=== PATIENT | female | born 1975 | race Caucasian/White ===

== ENCOUNTER 2024-04-29 19:17 | Emergency (ER) | payer OTHER, SELFPAY ==
[2024-04-29 19:26] VITALS: BP 125/92
[2024-04-29 19:42] LABS: % Basophils 0.3 % (0-2); % Immature Granulocytes 0.2 % (0-0.5); % Lymphocytes 29.7 % (20.5-51.1); % Monocytes 7.5 % (1.7-9.3); % Neutrophils 60.3 % (42.2-75.2); Absolute Eosinophils 0.1 10^3/uL (0-0.7); Absolute Lymphocytes 1.8 10^3/uL (1.2-3.4); Absolute Monocytes 0.4 10^3/uL (0.1-0.6); Absolute Neutrophils 3.6 10^3/uL (1.4-6.5); Hematocrit 40.8 % (37.0-47.0); Hemoglobin 13.6 g/dL (12.0-16.0); Mean Corp Hgb Conc. 33.3 g/dL (33.0-37.0); Mean Corpuscular Hgb 29.9 pg (27.0-31.0); Mean Corpuscular Volume 89.7 fL (81.0-99.0); Mean Platelet Volume 10.8 fL (7.4-10.4); Nucleated Red Blood Cells % 0 %; Platelet Count 193 10^3/uL (130-400); Red Blood Cell Count 4.55 10^6/uL (4.20-5.40); Red Cell Dist. Width 11.9 % (11.5-14.5); White Blood Cell Count 5.9 10^3/uL (4.8-10.8)
[2024-04-29 19:59] LABS: HCG, Serum Qualitative Screen Negative
[2024-04-29 20:03] LABS: ALT (SGPT) 35 U/L (0-35); AST (SGOT) 27 U/L (14-36); Albumin 4.7 g/dl (3.5-5.0); Alkaline Phosphatase 101 U/L (38-126); Blood Urea Nitrogen 14 mg/dl (7-17); Carbon Dioxide 29 mmol/L (22-30); Chloride 104 mmol/L (98-107); Glucose 99 mg/dl (70-99); Lipase 186 U/L (23-300); Potassium 4.4 mmol/L (3.5-5.1); Sodium 141 mmol/L (135-145); Total Bilirubin 0.3 mg/dl (0.2-1.3); Total Protein 7.9 g/dl (6.3-8.2); eGFR > 60.00
[2024-04-29 21:31] VITALS: BMI 24.1
[2024-04-29 21:31] LABS: Urine Albumin Negative (Neg - Trace); Urine Bilirubin Negative (Negative); Urine Character Clear (Clear); Urine Color Yellow; Urine Glucose Negative (Negative); Urine Ketone Negative (Negative); Urine Leukocyte Negative (Negative); Urine Nitrite Negative (Negative); Urine Occult Blood Negative (Negative); Urine Urobilinogen Negative (Neg - 1+); Urine pH 6.5 (5.0-9.0)
--- NOTE | 2024-04-29 21:35 | ED.GENMED ---
History of Present Illness
General
Chief Complaint: Abdominal Pain
Source: patient
Exam Limitations: none
Time Seen by Provider: 04/29/24 21:14
History of Present Illness
History of Present Illness:
48yoF with no significant past medical history presenting for evaluation of abdominal pain. Symptoms have been intermittent for the past 4 to 5 weeks. She reports a pain in her epigastric region and RUQ. Pain is intermittent and seems to be worse
in the evenings. Pain seems to improve after eating if she is full. She has tried to eliminate coffee from her diet without any improvement. Her pain was constant earlier today but she is currently pain free. She is otherwise asymptomatic and
denies any fevers, chest pain, shortness of breath, pleuritic pain, nausea, vomiting, dysuria, diarrhea, constipation, weight loss. No previous abdominal surgeries.
Phy Exam
General Physical Exam
General Presentation: well appearing and no apparent distress
General age: appears stated age
General Skin: warm and dry
General Habitus: normal
General Mental: alert
ENT Exam
ENT Exam: normocephalic
Cardiovascular Exam
Cardiovascular Exam: regular rate/rhythm and no murmur
Pulmonary Exam
Pulmonary Exam: lungs clear, no respiratory distress, no rales, no crackles, no rhonchi and no wheezing
Gastrointestinal Exam
Gastrointestinal Exam: non tender, soft, non distended and no cva tenderness
Neurological Exam
Neurological Exam: alert
[place] Coma Scale
Eye Opening: Spontaneous
Verbal Response: Oriented
Motor Response: Obeys Commands
GCS Total Score: 15
Skin Exam
Skin Exam: normal color and warm/dry
Psychiatric Exam
Psychiatric Exam: normal mood/affect
Course
Orders/Labs/Results
Orders:
Orders
04/29/24 19:32
Test Result ONCE
04/29/24 19:35
Comprehensive Metabolic Panel Urgent
HCG, Serum Qualitative Screen Urgent
Lipase Urgent
04/29/24 19:36
Complete Blood Count/With Diff Urgent
04/29/24 21:25
Urinalysis Reflex To Culture Urgent
Date Specimen was Collected: 04/29/24
Time Specimen was Collected: 21:25
04/29/24 21:30
US Abdomen Complete/Upper Urgent
Comment:
Reason For Exam: Epigastric/RUQ pain
Abnormal Lab Results
04/29/24
19:36
MPV 10.8 H fL
(7.4-10.4)
04/29/24 19:36
04/29/24 19:35
Vital Signs
Initial and Last Documented VS:
Initial Vital Signs
Temp Pulse Resp BP Pulse Ox
97.7 F 50 18 125/92 100
04/29/24 19:26 04/29/24 19:26 04/29/24 19:26 04/29/24 19:26 04/29/24 19:26
Last Documented Vital Signs
Temp Pulse Resp BP Pulse Ox
98.3 F 58 18 125/88 99
04/29/24 23:41 04/29/24 23:41 04/29/24 23:41 04/29/24 23:41 04/29/24 23:41
MDM/Problems Addressed
Differential Diagnosis Includes:
48yoF here with intermittent epigastric/RUQ pain x 4-5 weeks. Radiates to back. No current pain. VSS. She is well appearing in no distress. Abdominal exam is benign. No rash visualized to suggest zoster. Differential diagnosis includes but is not
limited to: Biliary colic, gastritis, PUD, pancreatitis
Initial ED plan: Abdominal labs obtained in triage which are unremarkable including normal white count, lipase, LFTs, and renal function. Will check UA and upper abdominal ultrasound.
*Critical Care Note
Total Time (30-74mins, 75-104mins- exclusive of procedures): Not Applicable
Update Note
Update Note:
UA bland without hematuria or signs of infection. Upper abdominal ultrasound is normal. No evidence of cholelithiasis. Patient remains pain-free on reassessment. No indication for admission. She was advised to follow-up with her PCP and
gastroenterology. ED return precautions discussed. Patient in agreement with plan and was discharged in stable condition.
ED Attending Note
-
Portions of this chart may have been created with voice recognition software.� Occasional wrong word or��sound alike� substitutions may have occurred due to the inherent limitations of voice recognition software.
Discharge Plan
Departure
Patient Disposition: Home (Routine Discharge)
Date of Disposition: 04/29/24
Time of Disposition: 23:03
Patient with high blood pressure during this ER visit?: No
Discharge Problem:
Right upper quadrant abdominal pain
Instructions: Abdominal Pain
Prescriptions:
No Action
Vitamins Tablet
1 mg PO DAILY
ibuprofen 600 MG tablet
600 mg PO Q4HPRN PRN (Reason: moderate pain/cramps) Qty: 30 0RF
Referrals:
NONE,* [Family Provider] -
Min Driver MD [Active] -
Activity Restrictions/Additional Instructions:
Please follow-up with your family doctor and gastroenterology. Return to the ER with any worsening symptoms including fevers and severe pain.
Interventions
Interventions:
*Risk Screen - Suicide Last Done: 04/29/24 19:26
*General Assessment Last Done: 04/29/24 19:26
*Neglect/Abuse Screening Last Done: 04/29/24 19:26
*ED- Fall Risk Assessment Last Done: 04/29/24 21:27
*ED COVID-19 Vaccine History Last Done: 04/29/24 21:27
*Nursing Disposition Last Done: 04/29/24 23:48
[facility] Assessment Last Done: 04/29/24 21:27
Discharge Date and Time
Discharge Date/Time: 04/29/24 23:48
Print Language: ARMENIAN
[2024-04-29 23:41] VITALS: BP 125/88
== END 2024-04-29 23:48 | disposition home or self-care (01) ==
LOC: EMR 19:17
PROVIDERS: Emergency Medicine; Physician Assistant; EMERGENCY PHYSICIAN Student in an Organized Health Care Education/Training Program
DX: R10.11 Right upper quadrant pain (principal); R10.13 Epigastric pain
CPT/HCPCS: 99284; 76700; 80053; 81003; 83690; 84703; 85025